=== PATIENT | female | born 1995 | race Caucasian/White ===

== ENCOUNTER 2017-04-28 18:15 | Emergency (ER) | payer OTHER ==
--- NOTE | 2017-04-28 19:57 | RAD ---
HISTORY: Right leg pain TECHNIQUE: Multiple transverse and longitudinal ultrasound images were obtained of the veins of the right lower extremity using grayscale, color Doppler, and spectral Doppler imaging with and without compression and with augmentation. FINDINGS: VEINS: The common femoral vein, deep femoral vein, femoral vein and popliteal vein are compressible throughout their course, with normal flow on color Doppler imaging and normal response to augmentation on spectral Doppler imaging. SOFT TISSUES: Grossly normal. No large popliteal fossa cyst was identified. IMPRESSION: No sonographic evidence of deep vein thrombosis.
--- NOTE | 2017-04-28 20:39 | ED ---
Lower Extremity - HPI Summary HPI Summary: 21 female presents to ED with complaints of right calf pain that began this morning upon waking up. Patient states it is sharp and worse with movement. Is concerned for blood clot due to taking OCP. Patient states she was sent over by . Has not taken any medication for the pain. Denies swelling, redness and any other deformities/abnormalities. Patient admits to injury when she was walking up stairs and tripped. Denies any other injury. No bruising. No other complaints. No PMHx. Described pain to be dull and aching. - History of Current Complaint Chief Complaint: EDExtremityLower Stated Complaint: POSS CLOT IN RT LEG SENT BY Time Seen by Provider: 04/28/17 19:49 Hx Obtained From: Patient Mechanism Of Injury: Twisted Onset of Pain: Hours - 12, Post Accident Onset/Duration: Hours Severity Initially: Mild Severity Currently: Mild Pain Intensity: 2 Pain Scale Used: 0-10 Numeric Timing: Constant Location: Is Discrete @ - posterior mid right calf Character Of Pain: Sharp, Aching Associated Signs And Symptoms: Positive: Negative Aggravating Factor(s): Standing, Movement Alleviating Factor(s): Rest Able to Bear Weight: Yes Legs: 1 - pain - Allergies/Home Medications Allergies/Adverse Reactions: Allergies Allergy/AdvReac Type Severity Reaction Status Date / Time No Known Allergies Allergy Verified 04/28/17 19:51 Home Medications: Home Medications Adapalene 0.3% GEL (NF) [Differin 0.3% GEL (NF)] 0.3 % EX DAILY 04/28/17 [ History Confirmed 04/28/17] Cholecalciferol TAB* [Vitamin D TAB*] 1,000 unit PO DAILY 04/28/17 [History Confirmed 04/28/17] Cyanocobalamin (Vitamin B-12) [Vitamin B-12] 1,000 mcg PO DAILY 04/28/17 [ History Confirmed 04/28/17] Nuva Ring 04/28/17 [History] PMH/Surg Hx/FS Hx/Imm Hx Endocrine/Hematology History: Denies: Hx Anticoagulant Therapy, Hx Diabetes Cardiovascular History: Denies: Hx Hypertension - Surgical History Surgery Procedure, Year, and Place: none - Immunization History Immunizations Up to Date: Yes Infectious Disease History: No Infectious Disease History: Denies: Traveled Outside the [place] in Last 30 Days - Family History Known Family History: Positive: None - Social History Alcohol Use: Rare Substance Use Type: Reports: None Smoking Status (MU): Never Smoked Tobacco Review of Systems Constitutional: Negative Cardiovascular: Negative Respiratory: Negative Positive: Arthralgia, Myalgia - right calf Skin: Negative Neurological: Negative All Other Systems Reviewed And Are Negative: Yes Physical Exam Triage Information Reviewed: Yes Vital Signs On Initial Exam: Initial Vitals Temp Pulse Resp BP Pulse Ox 98.7 F 55 16 114/73 100 18 18:18 04/28/17 18:18 04/28/17 18:18 04/28/17 18:18 04/28/17 18:18 Vital Signs Reviewed: Yes Appearance: Positive: Well-Appearing, No Pain Distress, Well-Nourished Skin: Positive: Warm, Skin Color Reflects Adequate Perfusion, Dry, Cold Head/Face: Positive: Normal Head/Face Inspection Neck: Positive: Supple, Nontender Respiratory/Lung Sounds: Positive: Clear to Auscultation, Breath Sounds Present. Negative: Rales, Rhonchi, Wheezes Cardiovascular: Positive: Normal, RRR, Pulses are Symmetrical in both Upper and Lower Extremities - 2+ pedal bl. Negative: Murmur, Rub Musculoskeletal: Positive: Normal, Strength/ROM Intact, Pain @ - mid right posterior calf on palpation and with stretching/movement although dull "sore", Other - no erythema, edema or obvious deformity. Negative: Limited @, Interruption @, Edema Left, Edema Right Neurological: Positive: Normal, Sensory/Motor Intact, Alert, Oriented to Person Place, Time, Reflexes Intact, NV Bundle Intact Distally, Normal Gait Diagnostics - Vital Signs Vital Signs Temp Pulse Resp BP Pulse Ox 04/28/17 18:18 98.7 F 55 16 114/73 100 - Laboratory Lab Statement: Any lab studies that have been ordered have been reviewed, and results considered in the medical decision making process. - Ultrasound No standard instances Ultrasound Interpretation: No Acute Changes - No sonographic evidence of deep vein thrombosis. Ultrasound Interpretation Completed By: Radiologist Lower Extremity Course/Dx - Course Course Of Treatment: u/s obtained to rule out DVT, it was negative. appears to be suffering from a muscle strain/muscle soreness after injury. recommended stretching, rest, heating pad, elevating and NSAIDs. Aware of worsening signs and symptoms ot watch out for and to return if occur. no other concerns at this time. normal vitals and normal physical exam. all questions answered. patient agrees and understands plan.follow up pcp. - Diagnoses Differential Diagnosis/HQI/PQRI: Positive: Contusion, DVT, Sprain, Strain Provider Diagnoses: Pain of right calf, Muscle strain Discharge - Discharge Plan Condition: Stable Disposition: HOME Patient Education Materials: Muscle Strain (ED) Referrals: [facility] - [facility] CABRERA [Primary Care Provider] - Additional Instructions: Recommend taking ibuprofen to help with pain and inflammation. Apply heating pad to help with soreness. Rest. Any new or worsening symptoms please seek medical attention promptly, as discussed. Follow up with pcp to ensure symptoms and for re-eval.
[2017-04-28 20:51] VITALS: BP 105/65
== END 2017-04-28 20:50 | disposition home or self-care (01) ==
LOC: ED 18:15
DX: S86.911A Strain of unspecified muscle(s) and tendon(s) at lower leg level, right leg, initial encounter (principal); M79.661 Pain in right lower leg; X58.XXXA Exposure to other specified factors, initial encounter; Y92.9 Unspecified place or not applicable
CPT/HCPCS: 99282